=== PATIENT | male | born 1995 | race African-American/Black ===

== ENCOUNTER 2017-05-10 08:24 | Emergency (ER) | payer MEDICAID ==
[2017-05-10 08:35] VITALS: RESP 16; TEMP 98.4; O2SAT 98
[2017-05-10] MEDS ORDERED: NS 1,000 ML IV ONE (09:02)
--- NOTE | 2017-05-10 09:06 | EDPHY ---
General Medical Decision Making: CHIEF COMPLAINT: Multiple complaints HISTORY OF PRESENT ILLNESS: Patient complains of several months of "not feeling right." These include malaise, fatigue, sweats, palpitations, occasional cough, occasional cluster headaches, abdominal discomfort no nausea. Symptoms wax and wane. The mild-to- moderate. Last headache was early this morning and consistent with previous cluster headaches. Currently has no headache. No chest pain but has had palpitations at times. He has not yet been evaluated for these complaints. There are no predictable modifying factors. He has no recent travel outside the country or even the state. No known sick contacts. Fully vaccinated. No other associated complaints. REVIEW OF SYSTEMS: Ten systems reviewed and are negative unless otherwise noted in the HPI PCP: Dr. Jin SPECIALISTS: None PAST MEDICAL HISTORY: Cluster headaches PAST SURGICAL HISTORY: None SOCIAL HISTORY: Nonsmoker. Occasional alcohol. Occasional marijuana. 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 EOMs intact ENT, Mouth: Mucous membranes moist. No erythema or edema. No exudate. The airway is widely patent with midline uvula. Neck: Normal inspection, supple, non-tender. Painless range of motion in all planes. No meningismus or rigidity Respiratory: Lungs are clear to auscultation. No wheezing, rhonchi or crackles Cardiovascular: Regular rate and rhythm. No Gastrointestinal: Abdomen is soft and nontender Back: non-tender, no bony abnormalities Neurological: A&O, nonfocal, normal gait Skin: Warm and dry, no rash. No petechiae or purpura Extremities: Nontender, no pedal edema Psychiatric: Mood and affect normal DIFFERENTIAL DIAGNOSES: Including but not limited to mononucleosis, influenza, anxiety, dehydration, pneumonia MDM: 9:03 a.m. Multiple, vague complaints without any abnormalities on examination. I have ordered chest x-ray, laboratory studies and IV fluid. He is in no acute distress. There is no meningismus. No active headache. No abdominal pain or abnormalities on abdominal examination. Symptoms have been present for several months with recent exacerbation. 9:35 a.m. X-ray as read by me reveals no acute findings. Laboratory studies pending. 10:50 a.m. Patient re-evaluated. Chest x-ray has been read as no acute findings by radiologist. Laboratory studies reveal no significant abnormalities. I discussed follow-up with a primary care physician as this has been ongoing for several months. He is comfortable with this plan. He is discharged home stable condition. - Diagnostics Imaging Results: Imaging Impressions Chest X-Ray 05/10/17 09:01 Impression: Normal. No pneumonia or acute process. - History Smoking Status: Never smoked - Objective Vital Signs: Initial Vital Signs Temperature (C) 98.4 F 05/10/17 08:31 Heart Rate 83 05/10/17 08:31 Respiratory Rate 16 05/10/17 08:31 Blood Pressure 131/83 H 05/10/17 08:31 O2 Sat (%) 98 05/10/17 08:31 O2 Delivery Mode Room Air Allergies/Adverse Reactions: No Known Allergies Allergy (Unverified 05/10/17 08:31) Home Medications: Medication Instructions Recorded NK [No Known Home Meds] 05/10/17 Laboratory Results: Laboratory Results 05/10/17 09:25 05/10/17 09:25 05/10/17 05/10/17 05/10/17 10:00 09:25 09:25 WBC RBC Hgb Hct MCV MCH MCHC RDW Plt Count MPV Neut % (Auto) Lymph % (Auto) [place] % (Auto) Eos % (Auto) Baso % (Auto) Nucleat RBC Rel Count Absolute Neuts (auto) Absolute Lymphs (auto) Absolute Monos (auto) Absolute Eos (auto) Absolute Basos (auto) Absolute Nucleated RBC Immature Gran % Immature Gran # Sodium 142 mEq/L mEq/L (134-144) Potassium 3.7 mEq/L mEq/L (3.5-5.2) Chloride 101 mEq/L mEq/L (97-110) Carbon Dioxide 23 mEq/l mEq/l (22-31) Anion Gap 18 mEq/L H mEq/L (8-16) BUN 7 mg/dL mg/dL (7-23) Creatinine 0.7 mg/dL mg/dL (0.7-1.3) Estimated GFR > 60 Glucose 92 mg/dL mg/dL (70-100) Calcium 10.5 mg/dL H mg/dL (8.5-10.4) Total Bilirubin 1.9 mg/dL H mg/dL (0.1-1.4) Conjugated Bilirubin 0.4 mg/dL mg/dL (0.0-0.5) Unconjugated Bilirubin 1.5 mg/dL H mg/dL (0.0-1.1) AST 31 IU/L IU/L (17-59) ALT 37 IU/L IU/L (21-72) Alkaline Phosphatase 102 IU/L IU/L (38-126) Total Protein 9.0 g/dL H g/dL (6.3-8.2) Albumin 5.3 g/dL H g/dL (3.5-5.0) Lipase 108 IU/L IU/L (23-300) TSH 2.560 uIU/mL uIU/mL (0.465-4.680) Nasal Influenza A PCR Pending Nasal Influenza B PCR Pending Monoscreen NEGATIVE (NEGATIVE) 05/10/17 09:25 WBC 9.56 10^3/uL H 10^3/uL (3.80-9.50) RBC 5.72 10^6/uL 10^6/uL (4.40-6.38) Hgb 17.2 g/dL g/dL (13.7-17.5) Hct 48.8 % % (40.0-51.0) MCV 85.3 fL fL (81.5-99.8) MCH 30.1 pg pg (27.9-34.1) MCHC 35.2 g/dL g/dL (32.4-36.7) RDW 12.0 % % (11.5-15.2) Plt Count 337 10^3/uL 10^3/uL (150-400) MPV 10.4 fL fL (8.7-11.7) Neut % (Auto) 79.5 % H % (39.3-74.2) Lymph % (Auto) 16.1 % % (15.0-45.0) Madison % (Auto) 3.3 % L % (4.5-13.0) Eos % (Auto) 0.4 % L % (0.6-7.6) Baso % (Auto) 0.5 % % (0.3-1.7) Nucleat RBC Rel Count 0.0 % % (0.0-0.2) Absolute Neuts (auto) 7.59 10^3/uL H 10^3/uL (1.70-6.50) Absolute Lymphs (auto) 1.54 10^3/uL 10^3/uL (1.00-3.00) Absolute Monos (auto) 0.32 10^3/uL 10^3/uL (0.30-0.80) Absolute Eos (auto) 0.04 10^3/uL 10^3/uL (0.03-0.40) Absolute Basos (auto) 0.05 10^3/uL 10^3/uL (0.02-0.10) Absolute Nucleated RBC 0.00 10^3/uL 10^3/uL (0-0.01) Immature Gran % 0.2 % % (0.0-1.1) Immature Gran # 0.02 10^3/uL 10^3/uL (0.00-0.10) Sodium Potassium Chloride Carbon Dioxide Anion Gap BUN Creatinine Estimated GFR Glucose Calcium Total Bilirubin Conjugated Bilirubin Unconjugated Bilirubin AST ALT Alkaline Phosphatase Total Protein Albumin Lipase TSH Nasal Influenza A PCR Nasal Influenza B PCR Monoscreen Medications Given: Discontinued Medications Sodium Chloride (Ns) 1,000 mls @ 0 mls/hr IV EDNOW ONE; Wide Open PRN Reason: Protocol Stop: 05/10/17 09:03 Last Admin: 05/10/17 09:39 Dose: 1,000 mls Departure - Departure Disposition: Home, Routine, Self-Care Clinical Impression: Malaise, Diaphoresis, Anxiety Condition: Good Instructions: Weakness (ED), Anxiety (ED), Anxiolysis in Adults (ED) Additional Instructions: 1. Follow up with primary care physician Referrals: NONE *PRIMARY CARE P,. [Primary Care Provider] - As per Instructions VENESSA JIN [Medical Doctor] - As per Instructions Stand Alone Forms: School Excuse
[2017-05-10 09:42] LABS: % IMMATURE GRANULYOCYTES 0.2 % (0.0-1.1); ABSOLUTE IMMATURE GRANULOCYTES 0.02 10^3/uL (0.00-0.10); ADD DIFF? NO; ADD MORPH? NO; ADD SCAN? NO; ATYPICAL LYMPHOCYTE FLAG 10 (0-99); FRAGMENT RBC FLAG 0 (0-99); HEMATOCRIT 48.8 % (40.0-51.0); HEMOGLOBIN 17.2 g/dL (13.7-17.5); LEFT SHIFT FLG 0 (0-99); LIPEMIA HEMOLYSIS FLAG 90 (0-99); MEAN CELL HEMOGLOBIN 30.1 pg (27.9-34.1); MEAN CELL HEMOGLOBIN CONCENTR. 35.2 g/dL (32.4-36.7); MEAN CELL VOLUME 85.3 fL (81.5-99.8); MEAN PLATELET VOLUME 10.4 fL (8.7-11.7); PLATELET CLUMPS FLAG 0 (0-99); PLATELET COUNT 337 10^3/uL (150-400); RED BLOOD CELL COUNT 5.72 10^6/uL (4.40-6.38)
[2017-05-10 10:02] LABS: ALANINE AMINOTRANSFERASE 37 IU/L (21-72); ALBUMIN 5.3 g/dL (3.5-5.0); ALKALINE PHOSPHATASE 102 IU/L (38-126); ANION GAP 18 mEq/L (8-16); ASPARTATE AMINOTRANSFERASE 31 IU/L (17-59); BILIRUBIN,TOTAL 1.9 mg/dL (0.1-1.4); BILIRUBIN-CONJUGATED 0.4 mg/dL (0.0-0.5); BILIRUBIN-UNCONJUGATED 1.5 mg/dL (0.0-1.1); CALCIUM 10.5 mg/dL (8.5-10.4); CARBON DIOXIDE 23 mEq/l (22-31); CHLORIDE 101 mEq/L (97-110); CREATININE 0.7 mg/dL (0.7-1.3); GLOMERULAR FILTRATION RATE > 60; GLUCOSE 92 mg/dL (70-100); POTASSIUM 3.7 mEq/L (3.5-5.2); SODIUM 142 mEq/L (134-144)
[2017-05-10 11:12] VITALS: BP 134/89; PULSE 81
== END 2017-05-10 11:10 | disposition home or self-care (01) ==
DX: R53.81 Other malaise (principal); R61 Generalized hyperhidrosis; F41.9 Anxiety disorder, unspecified; E86.9 Volume depletion, unspecified

== ENCOUNTER 2017-10-30 14:17 | Emergency (ER) | payer MEDICAID ==
[2017-10-30 14:35] VITALS: BP 130/77
--- NOTE | 2017-10-30 15:04 | EDPHY ---
General Time Seen by Provider: 10/30/17 14:44 Narrative: CHIEF COMPLAINT: Mental health questions HISTORY OF PRESENT ILLNESS: Patient presents with complaints of "mental health questions." He reports feeling depressed, lacking energy and asking for help. He denies feeling suicidal or homicidal. He says he has been feeling this way over the past few weeks with some increasing frequency. He denies any harm to self in the past or recently. He does feel that he has had increasing stress with school. He says he reached out to [facility] 2 weeks ago. They evaluated him and are attempting to place him in a therapist. He has an appointment in January with a psychiatrist. He says that at times he feels well and other times this is moderate to severe. No other associated complaints or modifying factors. PSYCHIATRIC DIAGNOSES: Questionable diagnosis of depression anxiety. No history of suicidal ideation or suicide attempt PRIOR PSYCHIATRIC EVALUATIONS: Outpatient mental health care evaluation only M1/DETAINER: None. Patient does not meet criteria REVIEW OF SYSTEMS: Ten systems reviewed and are negative unless otherwise noted in the HPI EXAMINATION General Appearance: Alert, no distress. Well developed and well nourished. Well groomed Head: normocephalic, atraumatic Eyes: Pupils equal and round, no conjunctival pallor or injection ENT, Mouth: Mucous membranes moist Neck: Normal inspection, supple, non-tender Respiratory: Lungs are clear to auscultation Cardiovascular: Regular rate and rhythm. No murmur Gastrointestinal: Abdomen is soft and nontender Back: non-tender, no bony abnormalities Neurological: GCS 15. A&O, nonfocal, normal gait Skin: Warm and dry, no rash Extremities: Nontender, no pedal edema Psychiatric: Mood and affect normal. He describes depression but denies any suicidal ideation or homicidal ideation. No substance abuse. No access to weapons or medications. DIFFERENTIAL DIAGNOSES: Including but not limited to depression, energy, anxiety, dysthymia, hypothyroid MDM: 2:50 p.m. Mild depression with no thoughts of self-harm. No significant anxiety. No homicidal ideation. The patient is well groomed, well appearing and in no acute distress. Patient would likely benefit from therapy which she has attempted to arrange but is pending appointments. He does not meet any criteria for hold or detained her. I do feel he is stable for discharge home to his own accord. He will be sent over to the [facility]. We discussed strict ED precautions for any thoughts of self-harm or harm towards others. He verbalizes understanding and agrees to proceed with this. Discharged home stable condition. SUPERVISION: This patient was independently evaluated without direct involvement of or examination by the attending physician. - History Smoking Status: Never smoked - Objective Vital Signs: Initial Vital Signs Temperature (C) 98.8 F 10/30/17 14:33 Heart Rate 108 H 10/30/17 14:33 Respiratory Rate 17 10/30/17 14:33 Blood Pressure 130/77 H 10/30/17 14:33 O2 Sat (%) 97 10/30/17 14:33 O2 Delivery Mode Room Air Allergies/Adverse Reactions: No Known Allergies Allergy (Verified 10/30/17 14:33) Home Medications: Medication Instructions Recorded NK [No Known Home Meds] 05/10/17 Departure - Departure Disposition: Home, Routine, Self-Care Clinical Impression: Depressed affect, Anxiety reaction Condition: Good Instructions: Depression (ED) Additional Instructions: 1. Proceed to the mental Health walk-in clinic for evaluation 2. Recommend follow up at [facility] at [facility] at 3. Return to emergency department or contact 911 for any thoughts of self-harm, harm towards other, increasing depression Referrals: VENESSA VARGAS [Primary Care Provider] - As per Instructions Stand Alone Forms: School Excuse
== END 2017-10-30 15:10 | disposition home or self-care (01) ==
DX: F41.8 Other specified anxiety disorders (principal)